=== PATIENT | male | born 1955 | race Caucasian/White ===

== ENCOUNTER 2025-01-11 06:38 | Emergency (ER) | payer BC, MEDICARE ==
[~2025-01-11] VITALS: Ht 175.3 cm; Wt 90.9 kg
[2025-01-11] MEDS ORDERED: METF-438 PO (07:08)
[2025-01-11] MEDS ORDERED: ALBU10.7 (07:08)
[2025-01-11] MEDS ORDERED: ATOR-2 PO (07:08)
[2025-01-11] MEDS ORDERED: TAMS-55 (07:08)
[2025-01-11] MEDS ORDERED: METO-395 PO (07:08)
[2025-01-11] MEDS ORDERED: LOSA50TA64 PO (07:08)
[2025-01-11] MEDS ORDERED: BUME0.5T6 (07:08)
[2025-01-11 07:52] LABS: MEAN PLATELET VOLUME 7.4 FL (7.4-10.4); RED CELL DISTRIBUTION WIDTH 15.7 % (11.5-14.5)
[2025-01-11 08:00] LABS: CREATININE 0.84 MG/DL (0.60-1.10); TOTAL CARBON DIOXIDE 34.4 MMOL/L (24-32); eCRCL 85 ML/MIN; eGFR > 90 ML/MIN
--- NOTE | 2025-01-11 09:38 | ELECTROCARDIOGRAPH REPORT ---
[facility] Test Date: 2025-01-11 Test Time: 09:35:58 Pat Name: FAN SWARTZ Department: [facility]ER Patient ID: [facility]-[id number] Room: Gender: M Special Librarian: : 1955 Requested By: CATHERINE MURPHY Order Number: [id number] Reading MD: Dr. CHAVA Hill Measurements Intervals [place] Rate: 74 P: 43 MO: 157 QRS: 49 QRSD: 160 T: 72 QT: 469 QTc: 521 Interpretive Statements Sinus rhythm Right bundle branch block Electronically Signed On 01-12-2025 12:56:[address] CHAVA Hill Please click the below link to view image of tracing.
[2025-01-11] MEDS: normal saline 1000ML IV soln IVB ONE (09:40)
--- NOTE | 2025-01-11 09:51 | Physician Documentation ---
History of Present Illness ~ Chief Complaint: Vomiting Stated Complaint: MULTIPLE MEDICAL ISSUES Time Seen by MD: 09:03 Source: patient Mode of Arrival: POV Exam Limitations: no limitations HPI 69-year-old male with limited medical history and just recently getting a primary care provider started to have abdominal pain, anorexia, nausea vomiting 3 months ago. Patient has been being worked up and was told to stop drinking. Patient endorses 2-4 drinks per day for several years now drinks 1 beer per day. Patient states what brought him in today was that the pain to his lower abdomen was worse and he started vomiting, brown black bile. Patient states that his stool has been brown and black as well. Patient denies any significant medical history due to lack of primary care. Medication Reconciliation Allergies: Coded Allergies: No Known Allergies (Unverified , 01/11/25) Scheduled Atorvastatin Calcium (Atorvastatin Calcium), 1 TAB PO DAILY, (Reported) Losartan Potassium (Losartan Potassium), 1 TAB PO BID, (Reported) Metformin HCl (Metformin HCl), 1 TAB PO BID, (Reported) Metoprolol Succinate (Metoprolol Succinate), 1 TAB PO DAILY, (Reported) Miscellaneous Medications Albuterol Sulfate/Budesonide (Airsupra 90-80 Mcg Inhaler), (Reported) Bumetanide (Bumetanide), (Reported) Tamsulosin Hcl* (Flomax*), (Reported) Past Medical History Past Medical History: *CARDIOVASCULAR*, High Cholesterol, Hypertension, *GI/HEPATOBILIARY*, Cirrohsis Past Surgical History: noncontributory Smoking Status: Current every day smoker Alcohol Use: Heavy Lives with: Alone Occupation: unemployed Review of Systems All Other Systems at this time: Reviewed and Negative Gastrointestinal: Reports: see HPI Physical Exam Vital Signs: RN Vital Signs have been reviewed: Yes, Temperature: 98.0, Source: Oral, Heart Rate: 72, Respiratory Rate: 16, BP: 125/64, Pulse Oximetry: 93, Weight: 90.910 Oxygen Flow Rate: 0 Physical Exam General: Alert, no apparent distress. HEENT: PERRL, EOMI, no injection, moist mucous membranes. Neck: Full range of motion. Respiratory: Lungs clear, no respiratory distress. Chest: No accessory muscle use. Cardiovascular: Regular rate and rhythm, no murmurs. Gastrointestinal: Protuberant belly, normoactive bowel sounds, no CVA tenderness, no obvious masses generalized tenderness Extremities: Normal range of motion, no deformity. Plus one pitting edema Neurologic: Oriented x4. Psychiatric: Normal mood and affect. Skin: Normal color, warm and dry. No edema, no ecchymosis. Progress Results/Orders Results/Orders Vital Signs 01/11/25 01/11/25 01/11/25 01/11/25 06:54 07:53 07:53 09:41 Temp 98.0 Pulse 75 73 72 Resp 18 20 18 16 B/P (MAP) 116/48 123/59 (80) 125/64 (84) Pulse Ox 96 98 93 O2 Flow Rate 0 0 0 01/11/25 01/11/25 01/11/25 01/11/25 10:59 13:31 14:56 15:00 Temp 98.0 Pulse 70 72 75 75 78 80 Resp 18 17 18 B/P (MAP) 106/56 (73) 102/49 (66) 118/72 (87) 118/72 115/57 115/51 Pulse Ox 93 98 98 O2 Flow Rate 0 2.0 0 01/11/25 01/11/25 01/11/25 16:44 18:10 19:06 Temp 98.0 Pulse 76 76 76 Resp 20 19 16 B/P (MAP) 124/63 (83) 124/65 (84) 118/65 (82) Pulse Ox 93 94 97 O2 Flow Rate 0 2.0 2.0 Laboratory Tests Test 01/11/25 07:28 01/11/25 09:10 01/11/25 09:42 01/11/25 10:38 White Blood Count 15.5 H Red Blood Count 2.82 L Hemoglobin 8.3 L Hematocrit 24.0 L Mean Corpuscular Volume 85.2 Mean Corpuscular Hemoglobin 29.3 Mean Corpuscular Hemoglobin Concent 34.4 Red Cell Distribution Width 15.7 H Platelet Count 511 H Mean Platelet Volume 7.4 Neutrophils (%) (Auto) 71.1 Lymphocytes (%) (Auto) 16.9 L Monocytes (%) (Auto) 9.6 Eosinophils (%) (Auto) 1.5 Basophils (%) (Auto) 0.9 Neutrophils # (Auto) 11.0 H Lymphocytes # (Auto) 2.6 Monocytes # (Auto) 1.5 H Eosinophils # (Auto) 0.2 Basophils # (Auto) 0.1 CBC Comment Sodium Level 133 L Potassium Level 4.3 Chloride Level 96 L Carbon Dioxide Level 34.4 H Anion Gap 3 L Blood Urea Nitrogen 23 H Creatinine 0.84 Estimated GFR/1.73 m2 > 90 BUN/Creatinine Ratio 27.4 H Glucose Level 124 H Calcium Level 8.1 L Total Bilirubin 3.2 H Aspartate Amino Transf (AST/SGOT) 147 H Alanine Aminotransferase (ALT/SGPT) 34 Alkaline Phosphatase 218 H Total Protein 7.5 Albumin 2.3 L Globulin 5.2 H Albumin/Globulin Ratio 0.4 L Lipase 148 H Chemistry Comments Stool Occult Blood Positive H Ammonia 29 Ethyl Alcohol Level < 10 Urine Specimen Description Cln catch midstream Urine Color Yellow Urine Clarity Clear Urine pH 6.0 Urine Specific [place] <=1.005 Urine Protein Negative Urine Glucose (UA) Negative Urine Ketones Negative Urine Occult Blood Negative Urine Nitrite Negative Urine Bilirubin Small Urine Urobilinogen 0.2 Urine Leukocyte Esterase Negative Urine Culture Indicated Not ind Volume Urine Centrifuged 10 ml Urine Comment Urine Opiates Screen Negative Urine Methadone Screen Negative Urine Fentanyl Screen Negative Urine Barbiturates Screen Negative Urine Phencyclidine Screen Negative Urine Amphetamines Screen Positive Urine Benzodiazepines Screen Negative Urine Cocaine Screen Negative Urine Cannabinoids Screen Negative Drug Screen Comment Test 01/11/25 16:50 Glucometer 109 H EKG/XRAY/CT/US/VASC/MRI EKG : Additional Comment EKG indicating sinus rhythm with right bundle branch block at a rate of [address]-T abnormalities CT : Impression Indication: ABD PAIN Technique: CT axial images of the abdomen and pelvis are obtained without contrast. Coronal and sagittal reformats were obtained. Radiation Dose Information: CTDI volume is 32 mGy. Dose-length product is 1734 mGy*cm Comparison: None FINDINGS: There is limited interpretation of the abdomen and pelvis without administration of intravenous contrast. Innumerable bilateral pulmonary nodules, greater than 50 measuring up to 3.2 cm in the right lung base, 1.4 cm in the left lung base. Subcarinal lymph node measuring 1.4 cm. Adrenal glands, spleen, pancreas unremarkable in shape. There are innumerable hepatic hypodense lesions, greater than 50 and quantity consistent with malignancy/ metastatic disease. There appears to be thrombosis of the portal vein extending into the SMV, limited in evaluation on noncontrast examination. Portacaval lymph node measuring 2.3 cm. Cirrhotic morphology appearance of the liver. Gallbladder distention. No hydronephrosis/nephrolithiasis. Extensive thickening at the distal esophagus, proximal stomach. Perigastric lymph nodes measuring up to 2.8 cm. Small bowel loops normal in caliber. Moderate volume stool in the colon. No secondary signs for appendicitis. Abdominal aortic atherosclerotic disease. Bladder distended. Small amount of ascites fluid. Mesenteric edema. Free pelvic fluid. Left inguinal hernia containing fat measuring 2.8 x 2.7 cm. [id number] thoracolumbar degenerative disc disease. Chronic appearing L1 compression deformity with 30% loss height. Soft tissue edema/ anasarca. Numerous lymph nodes adjacent to the thoracic paravertebral bodies measuring up to 1.8 cm. IMPRESSION: Limited evaluation without contrast. Innumerable hepatic hypodense lesions consistent with metastatic disease/malignancy. Innumerable bilateral pulmonary nodules consistent with metastatic disease / malignancy. Recommend oncology consultation for further evaluation. Thrombosis of the portal vein extending into1 the SMV, suboptimally characterized on noncontrast examination. This can be further evaluated with CT/MRI abdomen with contrast. Gallbladder distention and pericholecystic edema. Correlate for cholecystitis. Distal esophageal and proximal gastric wall thickening with surrounding lymphadenopathy could represent primary site of malignancy. Mediastinal lymphadenopathy. Cirrhotic morphology appearance liver. Other findings as described. Recommend oncology consultation. Medical Decision Making Additional information obtaine: old records, N/A Findings Patient with history of heavy drinking and endorses no significant history of coughing medications he does take hypertension medications Topamax and atorvastatin. Patient states that he was advised by his primary to stop drinking. But denies any gastrointestinal history. Patient's LFTs are elevated bili above 3 patient's abdomen as taught no active nausea or vomiting. Gastric occult stool was positive but stool brown. Patient does have some dehydration as well. Electrolyte imbalance, WBC 15.+ Patient's labs with elevated lipase LFTs indicate chronic alcoholism with the ultrasound preliminary showing no portal vein flow but normal caliber with trace ascites. Abdominal CT shows innumerable malignant lesions to the lungs and liver. It also supports no portal vein flow with discussion with supervising physician. At this time oncology is recommended per imaging due to all of the malignancies. Transfer has been started to find a facility that could further treat and evaluate patient's condition. 1230: Spoke to significant other about imaging findings and pending transfer to speak with Oncology as well as Gastroenterology. 1605: Spouse states that patient wants to be discharged. He is hungry and he does not want to stay for transfer. Discussed leaving against medical advice and the need to see primary care and Oncology. Patient is adamant on being discharged. 1730: Patient and family member decided that after signing AMA papers they would like to continue with the transfer. Diff Dx GI Bleed:Consideration: Include: Gastritis, Gastroenteritis Diff Dx Pain:Considerations: Include: Esophagitis Diff Dx N/V/D:Considerations: Include: Dehydration, Electrolyte imbalance, GI bleed, Hepatitis, Pancreatitis Diff Dx Rectal:Considerations: Unlikely: Fissure, Fistula, Foreign body, Impaction, Perirectal abscess, Prostatitis, Rectal prolapse, Subcutaneous abscess, Thrombosed hemorrhoid, Ulcer, UTI, Other Addendum Sign-out note I received sign-out on this patient at shift change. Briefly: He presents with abdominal symptoms and was found to have metastatic lesions in his liver and lungs. Also possible GI bleed with hemoglobin of 8 Pending transfer Consult: 830 p.m.: I spoke to Dr. Aguilar, hospitalist at [facility]. He will accept for transfer. At time of transfer, the patient has stable vital signs. Smita Blake MD Departure Time of Disposition: 16:06 Disposition: 07 LEFT AWOL/ELOPED Impression: Primary Impression: Hepatic cancer Additional Impressions: Alcohol abuse Pancreatitis Portal vein obstruction Condition: Fair Additional Instructions: Indication: ABD PAIN Technique: CT axial images of the abdomen and pelvis are obtained without contrast. Coronal and sagittal reformats were obtained. Radiation Dose Information: CTDI volume is 32 mGy. Dose-length product is 1734 mGy*cm Comparison: None FINDINGS: There is limited interpretation of the abdomen and pelvis without administration of intravenous contrast. Innumerable bilateral pulmonary nodules, greater than 50 measuring up to 3.2 cm in the right lung base, 1.4 cm in the left lung base. Subcarinal lymph node measuring 1.4 cm. Adrenal glands, spleen, pancreas unremarkable in shape. There are innumerable hepatic hypodense lesions, greater than 50 and quantity consistent with malignancy/ metastatic disease. There appears to be thrombosis of the portal vein extending into the SMV, limited in evaluation on noncontrast examination. Portacaval lymph node measuring 2.3 cm. Cirrhotic morphology appearance of the liver. Gallbladder distention. No hydronephrosis/nephrolithiasis. Extensive thickening at the distal esophagus, proximal stomach. Perigastric lymph nodes measuring up to 2.8 cm. Small bowel loops normal in caliber. Moderate volume stool in the colon. No secondary signs for appendicitis. Abdominal aortic atherosclerotic disease. Bladder distended. Small amount of ascites fluid. Mesenteric edema. Free pelvic fluid. Left inguinal hernia containing fat measuring 2.8 x 2.7 cm. [id number] thoracolumbar degenerative disc disease. Chronic appearing L1 compression deformity with 30% loss height. Soft tissue edema/ anasarca. Numerous lymph nodes adjacent to the thoracic paravertebral bodies measuring up to 1.8 cm. IMPRESSION: Limited evaluation without contrast. Innumerable hepatic hypodense lesions consistent with metastatic disease/malignancy. Innumerable bilateral pulmonary nodules consistent with metastatic disease / malignancy. Recommend oncology consultation for further evaluation. Thrombosis of the portal vein extending into1 the SMV, suboptimally characterized on noncontrast examination. This can be further evaluated with CT/MRI abdomen with contrast. Gallbladder distention and pericholecystic edema. Correlate for cholecystitis. Distal esophageal and proximal gastric wall thickening with surrounding lymphadenopathy could represent primary site of malignancy. Mediastinal lymphadenopathy. Cirrhotic morphology appearance liver. Other findings as described. Recommend oncology consultation. Referrals: NO PRIMARY CARE PROVIDER (PCP) Education Educated: Patient Educated regarding: diagnosis, treatment, need for follow up Signature Scribe Signature: The note accurately reflects work and decisions made by me.Rosana Orlando NP 01/11/25 09:54 Attestation: The note accurately reflects work and decisions made by me.Rosana PRICE 01/11/25 09:54 ROSANA MURPHY NP Jan 11, 2025 09:51 SMITA BLAKE MD Jan 11, 2025 20:31
--- NOTE | 2025-01-11 10:13 | RADIOLOGY REPORT ---
Indication: ABD PAIN Technique: CT axial images of the abdomen and pelvis are obtained without contrast. Coronal and sagittal reformats were obtained. Radiation Dose Information: CTDI volume is 32 mGy. Dose-length product is 1734 mGy*cm Comparison: None FINDINGS: There is limited interpretation of the abdomen and pelvis without administration of intravenous contrast. Innumerable bilateral pulmonary nodules, greater than 50 measuring up to 3.2 cm in the right lung base, 1.4 cm in the left lung base. Subcarinal lymph node measuring 1.4 cm. Adrenal glands, spleen, pancreas unremarkable in shape. There are innumerable hepatic hypodense lesions, greater than 50 and quantity consistent with malignancy/ metastatic disease. There appears to be thrombosis of the portal vein extending into the SMV, limited in evaluation on noncontrast examination. Portacaval lymph node measuring 2.3 cm. Cirrhotic morphology appearance of the liver. Gallbladder distention. No hydronephrosis/nephrolithiasis. Extensive thickening at the distal esophagus, proximal stomach. Perigastric lymph nodes measuring up to 2.8 cm. Small bowel loops normal in caliber. Moderate volume stool in the colon. No secondary signs for appendicitis. Abdominal aortic atherosclerotic disease. Bladder distended. Small amount of ascites fluid. Mesenteric edema. Free pelvic fluid. Left inguinal hernia containing fat measuring 2.8 x 2.7 cm. Ppoe-[id number] thoracolumbar degenerative disc disease. Chronic appearing L1 compression deformity with 30% loss height. Soft tissue edema/ anasarca. Numerous lymph nodes adjacent to the thoracic paravertebral bodies measuring up to 1.8 cm. IMPRESSION: Limited evaluation without contrast. Innumerable hepatic hypodense lesions consistent with metastatic disease/malignancy. Innumerable bilateral pulmonary nodules consistent with metastatic disease / malignancy. Recommend oncology consultation for further evaluation. Thrombosis of the portal vein extending into1 the SMV, suboptimally characterized on noncontrast examination. This can be further evaluated with CT/MRI abdomen with contrast. Gallbladder distention and pericholecystic edema. Correlate for cholecystitis. Distal esophageal and proximal gastric wall thickening with surrounding lymphadenopathy could represent primary site of malignancy. Mediastinal lymphadenopathy. Cirrhotic morphology appearance liver. Other findings as described. Recommend oncology consultation.
[2025-01-11 10:56] LABS: LEUKOCYTE ESTERASE ,URINE NEGATIVE (Neg); NITRITES, URINE NEGATIVE (Neg); OCCULT BLOOD,URINE NEGATIVE (Neg)
[2025-01-11 10:59] LABS: UA COLLECTION TYPE CLN CATCH MIDSTREAM
--- NOTE | 2025-01-11 10:59 | RADIOLOGY REPORT ---
US ULTRASOUND OF ABDOMEN HISTORY: LFTs elevated heavy drinker COMPARISON: CT CT ABDOMEN PELVIS on DOS: 01/11/25 TECHNIQUE: Transverse and longitudinal grayscale and color sonographic images were obtained of the abdomen. FINDINGS: Liver: - Size: 17.3 cm - Echogenicity: Heterogenous - Surface Contour: Smooth - Liver Lesion(s): None - Portal Vein: Patent and forward flowing. - Bile Ducts: Normal. The common bile duct measures 5.4 mm. Gallbladder: Distended with sludge.. The sonographic dunaway sign is negative. Pancreas: Portions not obscured by bowel gas are normal. Kidneys: - Right kidney size: 10.5 cm. There is no hydronephrosis, renal calculi, or mass lesion. Aorta and Inferior Vena Cava: The visualized portions of the abdominal aorta and intrahepatic vena cava are normal. Other: None IMPRESSION: Coarse heterogeneous liver echotexture and trace ascites. Nonvisualization of color doppler flow of the main portal vein. Gallbladder sludge.
[2025-01-11 11:04] LABS: OCCULT BLOOD STOOL POSITIVE (Neg)
[2025-01-11 11:21] LABS: URINE AMPHETAMINE SCREEN POSITIVE (Neg); URINE BARBITUATE SCREEN NEGATIVE (Neg); URINE BENZODIAZEPINES SCREEN NEGATIVE (Neg); URINE CANNABINOID SCREEN NEGATIVE (Neg); URINE COCAINE SCREEN NEGATIVE (Neg); URINE METHADONE SCREEN NEGATIVE (Neg); URINE OPIATE SCREEN NEGATIVE (Neg); URINE PHENCYCLIDINE SCREEN NEGATIVE (Neg)
[2025-01-11 16:44] VITALS: TEMP 98
[2025-01-11 21:17] VITALS: BP 127/62; PULSE 79; RESP 14; O2SAT 99
== END 2025-01-11 21:45 | disposition left against medical advice (07) ==
LOC: ER 06:40
DX: C22.8 Malignant neoplasm of liver, primary, unspecified as to type (principal); K85.90 Acute pancreatitis without necrosis or infection, unspecified; I81 Portal vein thrombosis; E78.00 Pure hypercholesterolemia, unspecified; F10.10 Alcohol abuse, uncomplicated; F17.200 Nicotine dependence, unspecified, uncomplicated; I10 Essential (primary) hypertension; Z79.899 Other long term (current) drug therapy; Z56.0 Unemployment, unspecified
CPT/HCPCS: 36415; 74176; 76700; 80053; 80305; 80320; 81003; 82140; 82272; 82948; 83690; 85025; 86885; 86900; 86901; 93005; 96360; 99285; J7030; A4615